=== PATIENT | female | born 1980 | race Caucasian/White ===

== ENCOUNTER 2018-03-27 14:29 | Day surgery (SDC) | payer BC ==
[2018-03-27 16:07] VITALS: BMI 32.4
--- NOTE | 2018-03-28 00:52 | SS ---
OB TRIAGE NOTE DATE OF EVALUATION: 03/27/2018 REGULAR PHYSICIAN: Tony Schmid DO EVALUATING PHYSICIAN: Bryce Husain MD CHIEF COMPLAINT: Elevated blood pressure at home, swelling. HISTORY OF PRESENT ILLNESS: Ms. Oleary is a 37-year-old , AB2 with estimated date of confineme nt of 04/14/2018 with known twin gestation, who presents to labor and delivery tonight, complaining o f suspected elevated blood pressures at home. She denies headache, visual changes, or right upper qu adrant pain. She was last seen by Dr. Schmid in the office last week and was noted to be 4 cm at that time. PAST OBSTETRICAL HISTORY: Includes 2 miscarriages, 1 requiring D and C very early in . Thi s is the result of 4 attempts with IVF in [place]. She has a known twin gestation. PAST MEDICAL HISTORY: Unremarkable. PAST SURGICAL HISTORY: D and C. ALLERGIES: No known allergies. SOCIAL HISTORY: Denies tobacco or alcohol use. 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 PHYSICAL EXAMINATION: VITAL SIGNS: Initial blood pressure 140/90. Serial blood pressures are obtained and trend down. He r last blood pressure is 103/70. ABDOMEN: Soft, nontender and gravid. Pelvic exam by labor nurse shows the cervix to be 4 cm and ess entially unchanged from her exam in the office. heart tones are stable in both twin A and B. Good accelerations are seen in both twins. No significant regular contractions are noted. ASSESSMENT: 1. A 37-week twin gestation. 2. No evidence of preeclampsia. PLAN: The patient will be discharged home. I have discussed the case with Dr. Schmid who agrees. Th e patient was given complete labor and PIH precautions prior to her departure.
== END 2018-03-27 17:15 | disposition home or self-care (01) ==
LOC: L&D/OP 14:29
PROVIDERS: ATTEND Obstetrics & Gynecology
DX: O99.89 Other specified diseases and conditions complicating pregnancy, childbirth and the puerperium (principal); R03.0 Elevated blood-pressure reading, without diagnosis of hypertension; R60.9 Edema, unspecified; O30.003 Twin pregnancy, unspecified number of placenta and unspecified number of amniotic sacs, third trimester; O09.523 Supervision of elderly multigravida, third trimester; Z3A.37 37 weeks gestation of pregnancy; Z98.890 Other specified postprocedural states

== ENCOUNTER 2018-03-28 04:17 | Inpatient (IN) | payer BC ==
[2018-03-28 04:55] VITALS: BMI 32.4
[2018-03-28] MEDS ORDERED: Zolpidem Tartrate 5 MG TAB PO PRN (05:29)
[2018-03-28] MEDS ORDERED: Promethazine HCl 25 MG/ML VIAL IM PRN ×4 (05:29→17:53)
[2018-03-28] MEDS ORDERED: Lidocaine 1% (PF) 30 ML VIAL SC PRN (05:29)
[2018-03-28] MEDS ORDERED: Ondansetron HCl/PF 4 MG/2 ML Vial IVP PRN ×5 (05:29→17:53)
[2018-03-28] MEDS ORDERED: Meperidine HCl/PF 25 MG/ML VIAL IM/IV PRN (05:29)
[2018-03-28] MEDS ORDERED: Ibuprofen 800 MG TAB PO PRN (05:29)
[2018-03-28] MEDS ORDERED: NS / Oxytocin 40 units/1000ml 1,000 ML IV PRN (05:29)
[2018-03-28] MEDS ORDERED: HYDROcodone/Acetaminophen 5/325 mg Tablet PO PRN ×2 (05:29)
[2018-03-28] MEDS ORDERED: Butorphanol Tartrate 1 MG/ML VIAL SLOW IVP PRN (05:29)
[2018-03-28] MEDS ORDERED: Lactated Ringer's 1,000 ML IV SCH ×2 (05:30→17:53)
[2018-03-28] MEDS ORDERED: NS w/ Oxytocin 10 units 500 ML IV SCH (05:30)
--- NOTE | 2018-03-28 05:44 | PDOC.LDHP ---
Labor and Delivery H&P HPI: 37 yo WF presents c/o SROM clear at 3 AM. Current gestational age (weeks): 37 Due date: 04/14/18 Dating criteria: first trimester ultrasound Grav: 3 Para: 0 OB History Details: Twin , h/o IVF. Care with Dr. Schmid. Current complications: none Abnormal US findings: No Past Medical History: None Current medications: pre-franki vitamins Previous surgical history: dilation and curettage Allergies/Adverse Reactions: Allergies Allergy/AdvReac Type Severity Reaction Status Date / Time Penicillins Allergy Unknown Verified 03/27/18 16:04 Social history: none - Physical Exam Vital signs reviewed and normal: yes General: NAD Heart: RRR Lungs: nonlabored breathing Abdomen: gravid Extremeties: pitting edema FHT: variability present [place] contractions every: Irregular UCs seen - Vaginal Exam cm dilated: 4 Effacement: 90% Station: 1+ - OB Labs Blood type: AB RH: positive Antibody Screen: negative HIV: negative RPR: negative HEPSAg: negative 1 hour GCT: negative GBS: negative - Assessment 37 week twins Srom in early labor Bedside USG confirms vtx/vtx - Plan Plan: admit to L&D, labor augmentation if indicated (Dispo at this time is to attempt vaginal delivery)
[2018-03-28] MEDS: Lactated Ringer's 1,000 ML IV SCH ×3 (06:03→12:46)
[2018-03-28 06:27] LABS: Hemoglobin 10.7 g/dL (12.0-16.0); Mean Corpuscular HGB CONC 34.7 g/dL (32.0-36.0); Mean Corpuscular Volume 86.6 fl (81.0-99.0); Mean Platelet Volume 8.5 fL (7.4-10.4); Platelet Count 154 thou/uL (130-400); RBC Distribution Width 12.6 % (11.5-14.5); Red Blood Cell (RBC) Count 3.58 mill/uL (4.20-5.40)
[2018-03-28] MEDS ORDERED: Eucerin (Mineral Oil/Petrolatum,White) 30 gm Jar TOP PRN ×2 (06:50→16:19)
[2018-03-28] MEDS ORDERED: Lactated Ringer's 500 ML IV PRN (06:50)
[2018-03-28] MEDS ORDERED: Acetaminophen 325 MG TAB PO PRN ×2 (06:50→17:53)
[2018-03-28] MEDS ORDERED: ePHEDrine/0.9% NaCl/PF SYRINGE 50 mg/10 ml SLOW IVP PRN (06:50)
[2018-03-28] MEDS ORDERED: diphenhydrAMINE 50 MG/ML VIAL IVP PRN ×2 (06:50→16:19)
[2018-03-28] MEDS ORDERED: Naloxone HCl 0.4 mg/ml Vial IVP PRN ×4 (06:50→16:19)
[2018-03-28] MEDS ORDERED: Sodium Chloride 0.9% 10 ML ONE (06:59)
[2018-03-28 07:00] LABS: HBSAg Index 0.26 S/CO (0-0.99); Hep B Surf Ag Non-Reactive S/CO (NonReactive); Syphilis Antibody Nonreactive (Nonreactive); Syphilis Antibody Index 0.05 S/CO (<1.00 Non-Reactive)
[2018-03-28] MEDS ORDERED: Communication Order-Pharmacy FS SCH ×2 (07:00→16:30)
[2018-03-28] MEDS ORDERED: Fentanyl 4mcg/Marcaine 0.1% Cassette 100 ML EPIDURAL SCH (07:00)
[2018-03-28] MEDS: Bupivacaine 0.5% 20 ML, fentaNYL Citrate/PF 400 MCG in Sodium Chloride 0.9% 72 ML EPIDURAL SCH ×2 (07:08→13:56)
[2018-03-28] MEDS ORDERED: Bupivacaine/Epinephrine 0.5% 10 ML VIAL ONE (11:11)
[2018-03-28] MEDS ORDERED: Lidocaine 2% MPF 10 ML AMP (For Epidural Use) ONE (11:11)
--- NOTE | 2018-03-28 11:25 | PDOC.LDPN ---
Labor & Delivery Progress Note - Subjective Subjective: comfortable - Objective Vital signs reviewed and normal: yes General: resting Uterine fundus: non tender Dilation: 6 Effacement: 100% Station: 1+ FHT: category 1 [place] contractions every: 3 AROM: clear fluid - Assessment (1) Dichorionic diamniotic twin in third trimester Code(s): O30.043 - TWIN , DICHORIONIC/DIAMNIOTIC, THIRD TRIMESTER Current Visit: Yes Status: Acute (2) 37 weeks gestation of Code(s): Z3A.37 - 37 WEEKS GESTATION OF Current Visit: Yes Status : Acute (3) Active labor Code(s): JLQ1531 - Current Visit: Yes Status: Acute Plan: labor augmentation
--- NOTE | 2018-03-28 12:59 | PDOC.LDPN ---
Labor & Delivery Progress Note - Subjective Subjective: comfortable - Objective Vital signs reviewed and normal: yes General: resting Dilation: 10 Effacement: 100% Station: 2+ FHT: category 1 [place] contractions every: 2-3 - Assessment (1) Dichorionic diamniotic twin in third trimester Code(s): O30.043 - TWIN , DICHORIONIC/DIAMNIOTIC, THIRD TRIMESTER Current Visit: Yes Status: Acute (2) 37 weeks gestation of Code(s): Z3A.37 - 37 WEEKS GESTATION OF Current Visit: Yes Status : Acute (3) Active labor Code(s): [id number] - Current Visit: Yes Status: Acute Plan: other -: Transitioning to 2nd stage. FHT reassuring, desires and consents for vaginal delivery.
--- NOTE | 2018-03-28 13:57 | PDOC.LDPN ---
Labor & Delivery Progress Note - Subjective Subjective: comfortable - Objective Vital signs reviewed and normal: yes General: breathing through contractions Dilation: 100 Effacement: 100% Station: 2+ FHT: category 1 - Assessment (1) Dichorionic diamniotic twin in third trimester Code(s): O30.043 - TWIN , DICHORIONIC/DIAMNIOTIC, THIRD TRIMESTER Current Visit: Yes Status: Acute (2) 37 weeks gestation of Code(s): Z3A.37 - 37 WEEKS GESTATION OF Current Visit: Yes Status : Acute (3) Active labor Code(s): [id number] - Current Visit: Yes Status: Acute Plan: continue plan of care (pushing x 1 hr, no descent noted, tug of war technique in progress.), other
[2018-03-28] MEDS ORDERED: Ketorolac Tromethamine 30 MG/ML VIAL ONE ×2 (14:01→15:31)
[2018-03-28] MEDS ORDERED: Ondansetron HCl/PF 4 MG/2 ML Vial ONE ×2 (14:01→15:31)
[2018-03-28] MEDS ORDERED: Dexamethasone 20 MG/5 ML VIAL ONE (14:01)
[2018-03-28] MEDS ORDERED: CEFAZOLIN/Water 2 GM/20 ML SYRINGE ONE (15:14)
[2018-03-28] MEDS ORDERED: Bicitra 30 ML UDCUP ONE (15:14)
--- NOTE | 2018-03-28 15:19 | PDOC.LDPN ---
Labor & Delivery Progress Note - Subjective Subjective: comfortable - Objective Vital signs reviewed and normal: yes Dilation: 100 Effacement: 100% Station: 1+ FHT: category 1 - Assessment (1) Dichorionic diamniotic twin in third trimester Code(s): O30.043 - TWIN , DICHORIONIC/DIAMNIOTIC, THIRD TRIMESTER Current Visit: Yes Status: Acute (2) 37 weeks gestation of Code(s): Z3A.37 - 37 WEEKS GESTATION OF Current Visit: Yes Status : Acute (3) Active labor Code(s): [id number] - Current Visit: Yes Status: Acute (4) Hx of labor arrest, 2nd stage, currently Code(s): O09.299 - SUPRVSN OF PREG W POOR REPRODCTV OR OBSTET HISTORY, UNSP TRI Current Visit: Yes Status: Acute -: No descent with 2.5hrs of pushing, discused indication for 1CS.
[2018-03-28] MEDS ORDERED: Bicitra 30 ML UDCUP PO SCH (15:30)
[2018-03-28] MEDS ORDERED: CEFAZOLIN/Water 2 GM/20 ML SYRINGE SLOW IVP SCH (15:30)
[2018-03-28] MEDS ORDERED: Morphine PF 1 MG/ML SYR ONE (15:31)
[2018-03-28] MEDS ORDERED: Dexamethasone 4 mg/ml Vial ONE (15:31)
[2018-03-28] MEDS ORDERED: Oxytocin 10 UNITS/ML VIAL ONE (15:52)
[2018-03-28] MEDS ORDERED: Fentanyl 250 MCG/5 ML VIAL ONE (15:54)
--- NOTE | 2018-03-28 16:10 | PDOC.EVN ---
Event Note - Event Note Event Note: AMANDA Oncall: CS ASSIST NOTE on 03/28/18 at [address] Schmid for primary CS for twins, arrest of descent at second stage. I was scurbbed and participated as photographer's assistant with the primary LTCS. Ancef given preop, and Zmax 500mg ordered (pending- roger give in RR). Twins: Vertex/Vertex. Primary LTCS via pfannenstiel Complications: None Incision sutured. Counts correct
--- NOTE | 2018-03-28 16:13 | PDOC.OPDEL ---
OB Operative/Delivery Note - Findings A Sex: female Weight: 7 lb 7 oz - 1 min: 8 - 5 min: 9 B Sex: female Weight: 6 lb 7 oz - 1 min: 8 - 5 min: 9 - Additional Findings/Plan Placenta delivered: manual removal findings: low transverse hysterotomy without extension, normal uterus, normal tubes, normal ovaries Estimated blood loss: 1100ml Post delivery plan: routine recovery
[2018-03-28] MEDS ORDERED: Azithromycin 500 MG in Sodium Chloride 0.9% 250 ML 250 ML IVPB ONE (16:15)
[2018-03-28] MEDS ORDERED: HYDROmorphone 2 MG/ML VIAL SLOW IVP PRN (16:19)
[2018-03-28] MEDS ORDERED: Naloxone HCl 0.4 mg/ml Vial IV PRN (16:19)
[2018-03-28] MEDS ORDERED: Meperidine HCl/PF 25 MG/ML VIAL SLOW IVP PRN (16:19)
[2018-03-28] MEDS ORDERED: Promethazine HCl 25 MG SUPP PR PRN (16:19)
[2018-03-28] MEDS ORDERED: Ketorolac Tromethamine 30 MG/ML VIAL IVP SCH (16:30)
[2018-03-28] MEDS ORDERED: diphenhydrAMINE 25 MG CAP PO PRN (17:53)
[2018-03-28] MEDS ORDERED: Lanolin Ointment 7 GM TUBE TOP PRN (17:53)
[2018-03-28] MEDS ORDERED: NS / Oxytocin 40 units/1000ml 1,000 ML IV SCH (17:53)
[2018-03-28] MEDS ORDERED: Adacel (T-DAP) 0.5 ML VIAL IM ONE (17:53)
[2018-03-28] MEDS ORDERED: Bisacodyl 10 MG SUPP PR PRN (17:53)
[2018-03-28] MEDS ORDERED: NS / Oxytocin 40 units/1000ml 1,000 ML ONE (18:38)
[2018-03-28] MEDS: Docusate Calcium (SURFAK) 240 MG CAP PO SCH (21:05)
[2018-03-28] MEDS: Ferrous Sulfate 325 MG TAB PO SCH (21:05)
[2018-03-28] MEDS: Ondansetron ODT 4 MG TAB PO PRN (21:08)
--- NOTE | 2018-03-28 21:51 | OP ---
DATE OF PROCEDURE: 03/28/2018 PREOPERATIVE DIAGNOSES: 1. G1 at 37 weeks with dichorionic-diamniotic twin. 2. Arrest of descent. POSTOPERATIVE DIAGNOSIS: Status post primary low-transverse section. SURGEON: Tony Schmid DO SPORTS MARKETING SPECIALIST: Jorge Adler MD ANESTHESIA: Epidural, Dr. Grant. COMPLICATIONS: None. ESTIMATED BLOOD LOSS: 1100 mL. FINDINGS: 1. Baby A, vigorous female , weight 7 pounds 7 ounces, Apgars 8 and 9, to nursery. 2. Baby B, female, weight 6 pounds 7 ounces, Apgars 8 and 9, to nursery. 3. Dichorionic-diamniotic placenta, delivered, normal appearing. 4. Normal-appearing uterus, tubes, and ovaries bilaterally. 5. Surgical sites hemostatic. 6. Fundus firm. INDICATIONS: Ms. Annamarie Oleary presented after rupture of membranes in active labor this morning with a known dichorionic-diamniotic , desiring vaginal delivery with twins in the vertex-isaac wang presentation. Her labor was noted to be protracted, but after Pitocin, she progressed to 10 cm, completely effaced, and +1 station. The patient pushed for approximately 2-1/2 hours with no descent of the head noted. The patient was counseled for primary for failure to descend and was taken back to the OR. DESCRIPTION OF PROCEDURE: The patient was taken back to the OR with IV fluids running. Once she was in the OR, she was placed in dorsal supine position with a left lateral tilt. Epidural catheter had previously been placed as well as Laboy catheter. The abdomen was prepped and draped in normal [facility] ion for section. Ancef 2 grams was received onyx chip terrazzo worker to the OR and 500 mg of azithromycin wa s ordered to be given in the PACU. The abdomen was tested after the drapes were placed and anesthesi a was found to be adequate. Pfannenstiel skin incision was made with a scalpel. Skin incision was c arried down through the subcutaneous tissue. Once the fascia was reached, it was incised in the midl ine and extended superolaterally using curved Wolf scissors. Salomon clamps were placed in the superi or border of the fascia, which was sharply and bluntly dissected off the rectus abdominis muscles in both caudad and cephalad directions allowing adequate room for delivery of the . The rectus mu scles were then in the midline. The peritoneum was bluntly entered and stretched laterally . An Emile O retractor was placed into the peritoneal cavity for retraction, visualization, and pro tection of the wound. A bladder flap was created and the bladder was dissected away from the planned hysterotomy site. A low-transverse hysterotomy was made with the scalpel and the hysterotomy was ex tended using the Crede maneuver. Clear amniotic fluid was noted from baby A. Baby A was delivered w ithout difficulty through the hysterotomy. A narrow pubic arch was noted on delivery of the baby A. Once baby A was delivered, delayed cord clamping was allowed for approximately 30-45 seconds while t he nose and mouth were suctioned, and the was dried. After the delay, the cord was clamped an d cut. The was handed off to special care nurses in attendance. Cord blood had been collecte d. An amniotomy of baby B was performed with clear fluid noted as well. Baby B was then delivered t hrough the hysterotomy without difficulty. She had a vigorous cry at delivery. Her nose and mouth w ere suctioned and after over a delay of 30-45 seconds, the cord was doubly clamped and cut and the in philip was handed off to special care nurses in attendance. Cord blood was collected. The placentas w ere delivered intact and were normal appearing. The uterus was exteriorized, massaged to firm, and c leared of clot and debris. The hysterotomy was inspected and no extensions were noted. The hysterot jennifer was closed with Monocryl suture in a running locked fashion. After the hysterotomy was closed, t he uterus was noted to be firm. The hysterotomy and pericolic gutters were irrigated and suctioned d ry. No areas of bleeding were noted. The Emile O retractor was removed from the abdominal cavity. The fascia and muscle were inspected with no bleeding noted. The fascia was then reapproximated wit h PDS suture from corner to corner. Subcutaneous tissue was irrigated and dried. Small areas of ble eding were controlled with Bovie cauterization. Subcutaneous tissue was reapproximated with plain gu t suture. Skin was closed with 4-0 Monocryl and dressed with Dermabond dressing. The uterus was pal pated again and noted to be firm. The patient was then cleaned, dried, and taken to the recovery rita m in good condition.
[2018-03-29] MEDS: Ketorolac Tromethamine 30 MG/ML VIAL IVP PRN ×2 (02:05→08:19)
[2018-03-29] MEDS ORDERED: Acetaminophen/Codeine 30-300mg Tablet PO PRN (04:30)
--- NOTE | 2018-03-29 05:46 | PDOC.PP ---
Post Progress Note Post Day #: 1 Subjective: Doing well, just bilateral leg edema PO intake tolerated: yes Flatus: yes Ambulation: yes Vital Signs (12 hours) Temp Pulse Resp BP Pulse Ox 03/29/18 01:47 98.4 F 89 16 03/29/18 00:21 98.4 F 89 16 131/74 98 03/28/18 20:19 98.2 F 73 16 137/86 98 03/28/18 18:30 98.1 F 76 16 134/89 95 Weight Weight 189 lb - Physical Examination General: NAD Cardiovascular: no m/r/g Respiratory: clear to auscultation bilaterally Abdominal: + bowel sounds, no distention, appropriately TTP Extremities: negative homans (B) Skin: CS incision dry & intact (Sutured) Neurological: no gross focal deficits Psychiatric: A&Ox3, normal affect Result Diagrams: 03/28/18 06:17 Additional Labs: Post Labs Blood Type AB POSITIVE 03/28/18 06:17 Hep Bs Antigen Non-Reactive S/CO (NonReactive) 03/28/18 06:17 (1) delivery delivered Code(s): O82 - ENCOUNTER FOR DELIVERY WITHOUT INDICATION Status: Acute (2) Dichorionic diamniotic twin in third trimester Code(s): O30.043 - TWIN , DICHORIONIC/DIAMNIOTIC, THIRD TRIMESTER Status: Acute - Assessment/Plan Postop day 1 this PM: Twins s/p primary CS for failure to descent. BPs 130/80s..Due to bilateral leg edema, we will treat with lasix 20mg SIVP x1. This is not for BP control but to help mobilize fluid. Laboy had 1200ml out prior to removal. Follow Temps
[2018-03-29] MEDS ORDERED: Furosemide 20 MG/2 ML VIAL SLOW IVP SCH ×2 (06:00→22:15)
[2018-03-29 06:06] LABS: Hemoglobin 8.6 g/dL (12.0-16.0); Mean Corpuscular HGB CONC 34.4 g/dL (32.0-36.0); Mean Corpuscular Hemoglobin 30.1 pg (27.0-31.0); Mean Corpuscular Volume 87.6 fl (81.0-99.0); Mean Platelet Volume 8.8 fL (7.4-10.4); Platelet Count 150 thou/uL (130-400); RBC Distribution Width 12.6 % (11.5-14.5); Red Blood Cell (RBC) Count 2.84 mill/uL (4.20-5.40); White Blood Cell (WBC) Count 15.7 thou/uL (4.8-10.8)
[2018-03-29] MEDS: Ondansetron ODT 4 MG TAB PO PRN (08:19)
[2018-03-29] MEDS: Docusate Calcium (SURFAK) 240 MG CAP PO SCH ×2 (08:58→21:49)
[2018-03-29] MEDS: Prenatal Vitamin 1 TAB PO SCH (08:58)
[2018-03-29] MEDS: Ferrous Sulfate 325 MG TAB PO SCH ×2 (08:58→21:50)
[2018-03-29] MEDS ORDERED: Sodium Chloride 0.9% 10 ML ONE (09:58)
[2018-03-29] MEDS: Simethicone Chewable 80 MG TAB PO PRN ×2 (11:06→21:50)
[2018-03-29] MEDS: Acetaminophen/Codeine 30-300mg Tablet PO PRN ×2 (15:41→21:54)
[2018-03-29] MEDS: Ibuprofen 800 MG TAB PO SCH (21:49)
[2018-03-29] MEDS ORDERED: Furosemide 20 MG TAB PO SCH (22:15)
[2018-03-30] MEDS: Ibuprofen 800 MG TAB PO SCH ×2 (06:13→13:52)
[2018-03-30] MEDS: Acetaminophen/Codeine 30-300mg Tablet PO PRN ×2 (06:14→13:51)
--- NOTE | 2018-03-30 10:26 | PDOC.EVN ---
Event Note - Event Note Event Note: Babies doing well and set to be released at 48 hrs. Pt. wants to go home. Tolerating regular diet, ambulating well. VSS AF Precautions reviewed. DC home with f/u with Dr. Schmid in 2 weeks.
[2018-03-30] MEDS: Ferrous Sulfate 325 MG TAB PO SCH (10:51)
[2018-03-30] MEDS: Docusate Calcium (SURFAK) 240 MG CAP PO SCH (10:52)
[2018-03-30] MEDS: Prenatal Vitamin 1 TAB PO SCH (10:52)
--- NOTE | 2018-03-30 13:17 | PRG ---
DATE OF SERVICE: 03/30/2018. HISTORY OF PRESENT ILLNESS: This is postoperative day #2 for a primary of a twin gestation for failure to progress. In the last 24 hours, the patient's main concern was the incredible amount of edema she is developing in her lower extremities, pitting edema up to her thighs to the point silvia t she was unable to bend her legs. The patient has been given 2 doses of Lasix over the course of day with instructions for the to massage up toward the heart. I encouraging the fluid to l eave and placement of SCDs and also elevation of the legs to above the heart. This morning, the richard ent reports that her legs feel much better with the skin is not nearly as taut and she is able to mov e them much easier. Patient denies any pain issues. She is tolerating p.o., voiding on her own, hav ing decreased lochia. ASSESSMENT AND PLAN: Postoperative day #2, status post a primary . We will continue postop erative care. Anticipate Dr. Schmid to resume care later this afternoon.
[2018-03-30 14:39] VITALS: BP 138/76; TEMP 98.2
== END 2018-03-30 15:15 | disposition home or self-care (01) | DRG 765 ==
LOC: L&D/OP 04:17 → L&D 05:19 → 3SE 18:26
PROVIDERS: ADMIT Obstetrics & Gynecology; ATTEND Obstetrics & Gynecology
PROC: 10D00Z1 Extraction of Products of Conception, Low, Open Approach (ICD-10-PCS; principal; 2018-03-28)
DX: O62.1 Secondary uterine inertia (principal); O30.043 Twin pregnancy, dichorionic/diamniotic, third trimester; Z37.2 Twins, both liveborn; Z3A.37 37 weeks gestation of pregnancy; R60.0 Localized edema; O90.89 Other complications of the puerperium, not elsewhere classified
CPT/HCPCS: 36415; 51702; 76815; 85027; 86780; 86850; 86900; 86901; 87340; 99285; A4216; J0456; J1100; J1885; J1940; J2001; J2274; J2405; J2590; J3010; J3490; J7050; Q0162

== ENCOUNTER 2018-05-19 22:25 | Emergency (ER) | payer BC ==
[2018-05-19 22:53] LABS: #Eosinphils 0.1 thou/uL (0.0-0.7); #Lymphocytes 1.6 thou/uL (1.20-3.40); #Monocytes 0.5 thou/uL (0.11-0.59); #Neutrophils 6.1 thou/uL (1.40-6.50); %Basophils 0.2 % (0.0-1.0); %Eosinophils 0.8 % (0.0-10.0); %Lymphocytes 19.2 % (21.0-51.0); %Monocytes 6.1 % (0.0-10.0); %Neutrophils 73.8 % (42.0-75.0); Hemoglobin 13.3 g/dL (12.0-16.0); Mean Corpuscular HGB CONC 34.6 g/dL (32.0-36.0); Mean Corpuscular Hemoglobin 29.3 pg (27.0-31.0); Mean Corpuscular Volume 84.8 fL (78.0-98.0); Mean Platelet Volume 6.7 fL (7.4-10.4); Platelet Count 261 thou/uL (130-400); RBC Distribution Width 12.5 % (11.5-14.5); Red Blood Cell (RBC) Count 4.54 mill/uL (4.20-5.40); White Blood Cell (WBC) Count 8.3 thou/uL (4.8-10.8)
[2018-05-19 22:58] LABS: BHCG - Serum Negative (NEGATIVE); Pregs Control Background? CLEAR/WHITE (CLR/WHITE); Pregs Control Bar Appear? YES (CONTROL BAR)
[2018-05-19 23:12] LABS: ALT (SGPT) 33 U/L (8-55); AST (SGOT) 27 U/L (5-34); Albumin 4.6 g/dL (3.5-5.0); Alcohol Less than 10 mg/dL (Less than 10); Alkaline Phosphatase 85 U/L (40-150); Anion Gap 12 mmol/L (10-20); BUN (Urea Nitrogen) 18 mg/dL (7.0-18.7); Bilirubin, Total 0.4 mg/dL (0.2-1.2); Calc. Creatinine Clearance 0 mL/min (70-130); Calcium 9.1 mg/dL (7.8-10.44); Carbon Dioxide 26 mmol/L (22-29); Chloride 102 mmol/L (98-107); Estimated GFR-MDRD 62; Globulin 2.7 g/dL (2.4-3.5); Glucose 91 mg/dL (70-105); Potassium 3.7 mmol/L (3.5-5.1); Protein, Total 7.3 g/dL (6.0-8.3); Sodium 136 mmol/L (136-145)
--- NOTE | 2018-05-19 23:22 | CT ---
NONCONTRAST CT HEAD: 05/19/18 HISTORY: Trauma. Patient fell off horse. COMPARISON: Not available. FINDINGS: There is no evidence of a hemorrhage, acute infarction, mass effect or midline shift. Ventricular sys tem is normal in size, shape and position. No calvarial fracture is seen. There are postsurgical fisher ges involving the anterior wall of each maxillary antrum. The maxillary antra are small in size bilat erally. The visualized paranasal sinuses and mastoid air cells are clear. IMPRESSION: No acute intracranial abnormality is demonstrated. POS: [facility]
--- NOTE | 2018-05-19 23:27 | CT ---
NONCONTRAST CT CERVICAL SPINE 05/19/18 HISTORY: Patient fell off horse. Pain in neck and right clavicle. Trauma. TECHNIQUE: Contiguous axial CT images are obtained through the cervical spine from the skull to the level of the T2 vertebral body. Sagittal and coronal reformatted images are provided. Vertebral body heights are within normal limits. No fracture or subluxation is seen involving the cer vical spine. The prevertebral soft tissues are within normal limits. Lung apices are clear. IMPRESSION: 1. No fracture or subluxation involving the cervical spine. 2. Above findings concerning CT of the head as well as CT cervical spine were discussed with Dr. Cuellar in the Emergency Department on 05/19/18 at 2322 hours. POS: [facility]
--- NOTE | 2018-05-19 23:44 | RAD ---
PORTABLE AP CHEST X-RAY: 05/19/18 HISTORY: Trauma, patient fell off horse one to two hours prior to arrival. COMPARISON: None available. FINDINGS: The cardiac silhouette and pulmonary vasculature are within normal limits. The lungs are clear. No pn eumothorax or pleural effusion is seen. There is a mildly comminuted fracture involving the middle on e third right clavicle with mild displacement and angulation of the fracture fragments. No additional fracture is appreciated. IMPRESSION: 1. Mildly comminuted and angulated fracture involving the middle one third right clavicle. 2. No acute cardiopulmonary process. POS: [facility]
--- NOTE | 2018-05-19 23:46 | RAD ---
TWO VIEWS RIGHT CLAVICLE 05/19/18 HISTORY: Trauma. Patient fell off horse one to two hours prior to arrival. Neck and right clavicle pain. FINDINGS: There is a mildly comminuted fracture involving the middle one third right clavicle with slight displ acement of fracture fragments. The coracoclavicular and acromioclavicular distances are within normal limits. IMPRESSION: Mildly comminuted fracture middle one third right clavicle. POS: [facility]
--- NOTE | 2018-05-19 23:47 | RAD ---
TWO VIEWS LEFT TIBIA AND FIBULA: 05/19/18 HISTORY: Trauma. Patient fell off horse one to two hours prior to arrival. Left lower extremity pain. FINDINGS: There is no fracture seen involving the left tibia or fibula. No dislocation is seen. IMPRESSION: No acute osseous abnormality involving the left tibia or fibula. POS: [facility]
[2018-05-20] MEDS ORDERED: HYDROcodone/Acetaminophen 5/325 mg Tablet ONE (00:09)
== END 2018-05-20 00:19 | disposition home or self-care (01) ==
LOC: ERS 22:25
DX: S42.011A Anterior displaced fracture of sternal end of right clavicle, initial encounter for closed fracture (principal); S80.11XA Contusion of right lower leg, initial encounter; V80.010A Animal-rider injured by fall from or being thrown from horse in noncollision accident, initial encounter
CPT/HCPCS: 70450; 71045; 72125; 80053; 80307; 84703; 85025; 93005; 96374; J2270